=== PATIENT | male | born 1990 | race Two or more races ===

== ENCOUNTER 2020-07-09 17:21 | Inpatient (IN) | payer SELFPAY ==
[~2020-07-09] VITALS: Ht 170.2 cm; Wt 79.4 kg
[2020-07-09] MEDS ORDERED: SODIUM CHLORIDE 0.9% 1,000 ML IVB ONE (17:45)
[2020-07-09] MEDS ORDERED: PROMETHAZINE HCL 25 MG/ML 1ML IV ONE (18:30)
[2020-07-09] MEDS ORDERED: MORPHINE SULFATE 4 MG/ML SYR/VIAL IV ONE (18:30)
[2020-07-09 18:38] LABS: Basophils # (auto) 0 10 ^3/uL (0-0.2); Basophils % (auto) 0.2 % (0.0-2.0); Eosinophils # (auto) 0.1 10 ^3/uL (0-0.8); Eosinophils % (auto) 0.4 % (0.0-7.0); Hemoglobin 14.6 g/dL (13.5-17.5); Lymphocytes # (auto) 1.1 10 ^3/uL (0.4-5.4); Lymphocytes % (auto) 7.5 % (10.0-50.0); Mean Corpuscular Hemoglobin 26.4 pg (28.0-32.0); Mean Corpuscular Volume 77.6 fL (80.0-100.0); Monocytes # (auto) 1.2 10 ^3/uL (0-1.3); Monocytes % (auto) 8.2 % (0.0-12.0); Neutrophils # (auto) 12.1 10 ^3/uL (1.6-8.6); Neutrophils % (auto) 83.7 % (37.0-80.0); Nucleated Red Blood Cells % 0.1 %; Platelet Count (auto) 374 10^3/uL (140-450); Red Blood Cells 5.54 10^6/uL (4.5-5.90); Red Cell Distribution Width 13.8 % (11.8-14.3); White Blood Cell 14.4 10^3/uL (4.4-10.8)
[2020-07-09 19:02] LABS: Albumin 3.9 g/dL (3.4-5.0); BUN/Creatinine Ratio 10.3; Calcium 8.9 mg/dL (8.5-10.1); Potassium 3.2 mmol/L (3.5-5.1)
[2020-07-09 19:05] LABS: Bilirubin, Total 1.5 mg/dL (0.2-1.0); Total Protein 7.6 g/dL (6.4-8.2)
[2020-07-09 19:06] LABS: INR 1.03 (0.9-1.15); Partial Thromboplastin Time 32.7 sec (23.0-31.2)
[2020-07-09] MEDS ORDERED: cefTRIAXone 1GM/50ML D5W 50 ML IV ONE (19:45)
[2020-07-09] MEDS ORDERED: POTASSIUM CHL 20MEQ/100ML 100 ML IV ONE (19:45)
[2020-07-09 20:26] LABS: Urine Bacteria NONE SEEN /hpf (None Seen); Urine Blood 3+ /uL (Negative); Urine Hyaline Cast FEW /lpf (0 - 2); Urine Mucus FEW (None Seen); Urine WBC 2 /hpf (0 - 3)
[2020-07-09] MEDS ORDERED: TEMAZEPAM 15 MG CAP PO PRN (20:45)
[2020-07-09] MEDS ORDERED: ONDANSETRON HCL 4 MG/2 ML VIAL IV PRN (20:45)
[2020-07-09] MEDS ORDERED: MORPHINE SULF INJ 2 MG/ML SYRINGE 1ML IV PRN (20:45)
[2020-07-09] MEDS ORDERED: DOCUSATE SOD 100 MG CAP PO PRN (20:45)
[2020-07-09] MEDS ORDERED: ACETAMINOPHEN 325 MG TAB PO PRN (20:45)
[2020-07-09] MEDS ORDERED: HYDROcodone-ACET 5/325MG TAB PO PRN (20:45)
[2020-07-09] MEDS ORDERED: LORazepam 0.5 MG TAB PO PRN (20:45)
[2020-07-09] MEDS ORDERED: TAMSULOSIN HYDROCHLORIDE 0.4 MG CAP PO SCH (21:15)
[2020-07-09] MEDS: SODIUM CHLORIDE 0.9% 1,000 ML IV SCH (21:52)
[2020-07-09 22:42] VITALS: BP 129/96
--- NOTE | 2020-07-09 22:45 | NUR ---
MS admit from ER PAU CORNELL admitted to tele/MS after SBAR received. Patient oriented to FRANCY SABA RN primary RN, unit, room, bed, and unit policies regarding patient care and visiting hours. Patient weighed by bedscale and encouraged to call if they need something. Pt refused correa catheter. Educated on importance. Pt agreed to strain all urine via urinal. All questions and concerns addressed, patient verbalized understanding. Will continue to monitor.
[2020-07-09] MEDS: FINASTERIDE 5 MG TAB PO SCH (22:54)
[2020-07-10] MEDS: SODIUM CHLORIDE 0.9% 1,000 ML IV SCH ×4 (02:46→11:55)
[2020-07-10 04:59] VITALS: BP 101/56
[2020-07-10 06:39] LABS: Basophils # (auto) 0 10 ^3/uL (0-0.2); Basophils % (auto) 0.1 % (0.0-2.0); Eosinophils # (auto) 0.4 10 ^3/uL (0-0.8); Eosinophils % (auto) 4.3 % (0.0-7.0); Hematocrit 39.5 % (41.0-53.0); Hemoglobin 13.6 g/dL (13.5-17.5); Lymphocytes # (auto) 2.4 10 ^3/uL (0.4-5.4); Lymphocytes % (auto) 25.2 % (10.0-50.0); Mean Corpuscular Hemoglobin 27.2 pg (28.0-32.0); Mean Corpuscular Hgb Conc. 34.5 g/dL (32.0-36.0); Monocytes % (auto) 10.9 % (0.0-12.0); Neutrophils # (auto) 5.6 10 ^3/uL (1.6-8.6); Neutrophils % (auto) 59.5 % (37.0-80.0); Nucleated Red Blood Cells % 0.1 %; Platelet Count (auto) 317 10^3/uL (140-450); Red Cell Distribution Width 14.3 % (11.8-14.3); White Blood Cell 9.5 10^3/uL (4.4-10.8)
[2020-07-10 06:52] LABS: Potassium 3.5 mmol/L (3.5-5.1)
[2020-07-10 07:01] LABS: Calcium 7.7 mg/dL (8.5-10.1)
[2020-07-10 09:00] VITALS: BP 106/69
[2020-07-10] MEDS: FINASTERIDE 5 MG TAB PO SCH (09:53)
[2020-07-10] MEDS ORDERED: cefTRIAXone 1GM/50ML D5W 50 ML IV SCH (10:00)
--- NOTE | 2020-07-10 10:37 | NUR ---
Dr wiggins at bedside, patient reports no pain, reports that he filled the urinal and has peed in the toilet so he could have passed the stone and he didn't know. Patient states he feels all better now.
[2020-07-10 13:00] VITALS: BP 128/84
--- NOTE | 2020-07-10 14:27 | NUR ---
Patient IV discontinued, discharge instructions given, patient verbalized understanding of follow up appointment and instructions. patient ride to be here within 20 mins.
== END 2020-07-10 15:35 | disposition home or self-care (01) | DRG 694 ==
LOC: EDBD 17:21 → ER 17:21 → OVERFLOW 17:22 → WEST WING 22:27
PROVIDERS: ADMIT Hospitalist; ATTEND Hospitalist
DX: N13.2 Hydronephrosis with renal and ureteral calculous obstruction (principal); D89.9 Disorder involving the immune mechanism, unspecified; E87.6 Hypokalemia; J45.909 Unspecified asthma, uncomplicated; F17.210 Nicotine dependence, cigarettes, uncomplicated; F12.90 Cannabis use, unspecified, uncomplicated; Z82.49 Family history of ischemic heart disease and other diseases of the circulatory system; Z87.09 Personal history of other diseases of the respiratory system
CPT/HCPCS: 36415; 71045; 74176; 80048; 80053; 81001; 83735; 85025; 85610; 85730; 87086; 96361; 96365; 96375; G0378; J0696; J3480